=== PATIENT | female | born 1985 | race Caucasian/White ===

== ENCOUNTER → 2018-11-17 | Outpatient (CLI) | payer OTHER | LOC: FIMAGING 07:38 | PROVIDERS: ATTEND Obstetrics & Gynecology | DX: Z34.02 Encounter for supervision of normal first pregnancy, second trimester (principal); Z3A.19 19 weeks gestation of pregnancy ==

== ENCOUNTER 2019-03-12 10:54 | Inpatient (IN) | payer OTHER | END 2019-03-15 13:00 | disposition home or self-care (01) | LOC: FLD 10:54 → FOB 19:32 ==